=== PATIENT | female | born 1935 | race Caucasian/White ===

== ENCOUNTER 2017-03-03 13:38 | Emergency (ER) | payer OTHER ==
[~2017-03-03] VITALS: Ht 160 cm; Wt 75.0 kg
[~2017-03-03 13:38] MED LIST: ACET650S21 PO; AMLO5TAB4 PO; ASPI-770 PO; BISA10SU65 PR; DOCU-30 PO; DOCU50LI24 PO; FAMO40TA61 PO; HEPA5000 SQ; INSU100V5 SQ-INSULIN; LACT20SO13 PO; LEVO750T26 GT; LOSA25TA2 PO; LOSA25TA5 PO; MAGN400O4 GT; METR500T GT; OMEP-110 PO; POLY17PO5 PO; PRED20TA PO; SIMV20TA PO; UBID1CAP24 GT; [UNRECOGNIZED DRUG - CODE] GT
[2017-03-03] MEDS ORDERED: SUCR1TAB PO (13:55)
[2017-03-03] MEDS ORDERED: MULT-257 PO (13:55)
[2017-03-03] MEDS ORDERED: ESOM40CA PO (13:55)
[2017-03-03] MEDS ORDERED: WARF3TAB PO (13:55)
[2017-03-03] MEDS ORDERED: CARB1DRO8 EACHEYE (13:55)
[2017-03-03] MEDS ORDERED: FOLI0.4T2 PO (13:55)
[2017-03-03] MEDS ORDERED: VITA1CAP PO (13:55)
[2017-03-03 16:18] VITALS: BP 120/87
== END 2017-03-03 17:41 | disposition home or self-care (01) ==
LOC: ED 17:35
DX: Z43.1 Encounter for attention to gastrostomy (principal); E11.9 Type 2 diabetes mellitus without complications; J44.9 Chronic obstructive pulmonary disease, unspecified; I10 Essential (primary) hypertension; Z88.0 Allergy status to penicillin; Z88.1 Allergy status to other antibiotic agents; Z91.011 Allergy to milk products
CPT/HCPCS: 49450; 75984; 99284; C1729; 43760